=== PATIENT | female | born 1955 | race Caucasian/White ===

== ENCOUNTER → 2020-11-19 07:44 | Outpatient (CLI) | payer BC, SELFPAY ==
--- NOTE | 2020-11-19 07:48 | MM_ITS ---
PROCEDURE: MM DIG SCREENING MAMM BI W/CAD Digital Breast Tomosynthesis Included CLINICAL INDICATION: SCREENING There is a history of breast cancer patient's mother. COMPARISON: MG DIG MAMMO BILAT SCREENING from 01/23/2010, [facility] TECHNIQUE: Standard CC and MLO images and 3D Tomosynthesis was obtained. R2 CAD reviewed. FINDINGS: Prominent diffuse fibroglandular densities are seen throughout both breasts and findings are bilateral and symmetrical. No suspicious lesion in the breast suspicious microcalcifications. IMPRESSION: Diffuse breast density with no suspicious lesions seen BI-RAD Category: 1 Negative FOLLOW-UP: 1YR 1 Year Follow-up (A letter has been sent to the patient regarding results of the study.) Dictated by: Dr. Awais Brown MD 12/03/2020 07:33 Dr. Awais Brown MD in [place] 12/03/2020 07:33
--- NOTE | 2020-11-19 07:48 | XR_ITS ---
PROCEDURE: XR DEXA AXIAL SKELETON CLINICAL HISTORY: POST MENOPAUSAL COMPARISON: No exams were available for comparison FINDINGS: The total right hip BMD is 0.901 g per cm squared with a T-score of -0.3. The right femoral neck is 0.689 grams/centimeter squared and the T-score is -1.4. The total left hip BMD is 0.839 grams/centimeter squared with a T-score of -0.8. The left femoral neck is 0.749 grams/centimeter squared and the T-score is -0.9.. The lumbar spine BMD is 1.010 grams/centimeter squared with a T-score of -0.5.. IMPRESSION: Normal values for lumbar spine and left hip, mild osteopenia right hip Based on these results a follow-up exam is recommended in 2 year. Dictated by: Dr. Awais Brown MD 11/19/2020 13:43 Dr. Awais Brown MD in [place] 11/19/2020 13:43
== END ==
PROVIDERS: PCP Family Medicine; Visit Provider Family Medicine
DX: Z12.31 Encounter for screening mammogram for malignant neoplasm of breast (principal); Z13.820 Encounter for screening for osteoporosis; Z78.0 Asymptomatic menopausal state
CPT/HCPCS: 77063; 77067; 77080

== ENCOUNTER 2022-07-05 15:29 | Emergency (ER) | payer MEDICARE, SELFPAY ==
--- NOTE | 2022-07-05 15:40 | XR_ITS ---
PROCEDURE INFORMATION: Exam: XR Right Ankle Exam date and time: 07/05/2022 3:52 PM Age: 67 years old Clinical indication: Pain; Ankle; Right; Additional info: Fall TECHNIQUE: Imaging protocol: Radiologic exam of the Right ankle. Views: 3 or more views. COMPARISON: CR XR FOOT RT MIN 3V 07/05/2022 3:50 PM FINDINGS: Bones/joints: Acute nondisplaced lateral malleolar fracture. Nondisplaced fracture base of the 5th metatarsal. Soft tissues: Normal. IMPRESSION: 1. Acute nondisplaced lateral malleolar fracture. 2. Diffuse soft tissue swelling superficial to the lateral malleolus. 3. Nondisplaced fracture base of the 5th metatarsal.
--- NOTE | 2022-07-05 15:40 | XR_ITS ---
PROCEDURE INFORMATION: Exam: XR Right Foot Exam date and time: 07/05/2022 3:50 PM Age: 67 years old Clinical indication: Pain; Foot; Right; Additional info: Fall TECHNIQUE: Imaging protocol: Radiologic exam of the Right foot. Views: 3 or more views. COMPARISON: No relevant prior studies available. FINDINGS: Bones/joints: There is a comminuted fracture involving the base of the 5th metatarsal. Minimal enthesophyte plantar margin of the calcaneus at the site of attachment of the plantar aponeurosis. Soft tissues: Soft tissue swelling lateral aspect of the midfoot. IMPRESSION: 1. Findings compatible with a Wong fracture 5th metatarsal. 2. Soft tissue swelling lateral aspect of the midfoot.
[2022-07-05 15:51] VITALS: BP 149/77; PULSE 90; RESP 16; TEMP 37.1; O2SAT 97; BMI 28.1
--- NOTE | 2022-07-05 16:05 | EXP.UTC ---
Discharge Plan Disposition Patient Disposition: Home, Self-Care Condition: Good Prescriptions Prescriptions: New ibuprofen [IBU] 800 mg tablet 800 mg PO Q8HP PRN (Reason: Moderate Pain) Qty: 30 0RF Referrals Follow up/Referrals: Alfredo Acevedo MD [Primary Care Provider] - See instructions Cheryle Suarez DPM [Staff Physician] - See instructions Activity Restrictions/Add. Instructions Additional Instructions/Restrictions: Rest the extremity, apply ice for 15 minutes as tolerated three or four times per day, Elevate the extremity as tolerated while you are resting. Make sure you always have the boot on when standing until you are told different by orthopedist. Only do very minimal weight bearing with the boot on until you are told different by the orthopedist. Take ibuprofen for pain. I sent in a prescription to your pharmacy. Follow up with Dr. Suarez (podiatry here in the speciality clinic). I put in a referral but you need to call her office and schedule an appointment. Call in the morning to get a follow up appointment. If you go to a different orthopedic doctor or ultrasound spec make sure you take the x-ray disk with you. Follow up with your regular doctor. GO TO THE ER FOR ANY WORSENING SYMPTOMS Clinical Impressions Clinical Impression: Fracture of fifth metatarsal bone of right foot, Lateral malleolar fracture Instructions Patient Instructions: DI for Ankle Fracture, DI for Foot Fracture Discharge ED Provider: Geovanny Holbrook [facility] HPI General Stated complaint: AO 07/05 @1300 FELL ON R FOOT Mode of Arrival: Wheelchair Source of Information: Patient and Spouse Limitations: Physical Limitations Time Seen by Provider: 07/05/22 16:05 HEENT Symptoms (Recalled from RN notes): No Resp Symptoms (Recalled from RN notes): No Skin Symptoms (Recalled from RN notes): No MS Symptoms (Recalled from RN notes): Yes Functional Status (Recalled from RN notes): n/a History of Present Illness Provider Complaint: pt comes in today with c/o fall. pt had pain in right ankle. pt states she fell off a step into concrete Related Data Previous Rx's Medication Instructions Recorded ibuprofen 800 mg tablet (IBU) 800 mg PO Q8HP PRN Moderate Pain 07/05/22 #30 tabs Allergies Allergy/AdvReac Type Severity Reaction Status Date / Time No Known Allergies Allergy Verified 07/05/22 15:58 Worker's Comp Is this a Worker's Comp case?: No PFSH PFSH Social History Smoking Status: Never smoker alcohol intake: never current occupational status: employed and retired Travel in the last 8 weeks: None ROS Obtained: Yes All systems reviewed & no additional complaints except as documented Constitutional Constitutional: Denies chills and Denies fever(s) Integumentary/Breasts Skin/Breast: Denies redness, Denies rash and Denies wounds Neurologic Neurologic: Denies paresthesias Physical Exam General General appearance: alert and in no apparent distress Head Head exam: atraumatic, normocephalic and normal inspection Eye Eye exam: Present normal appearance, PERRL and EOMI ENT ENT exam: Present normal exam, normal oropharynx, mucous membranes moist, TM's normal bilaterally and normal external ear exam Neck Neck exam: Present normal inspection, full ROM and trachea midline; Absent meningismus or lymphadenopathy Chest Chest inspection: Present normal inspection and symmetric chest wall rise; Absent tenderness Respiratory Respiratory exam: Present normal lung sounds bilaterally; Absent respiratory distress Cardiovascular Cardiovascular exam: Present regular rate and normal rhythm; Absent JVD Expanded Cardiovascular Exam Peripheral pulses: 2+: posterior tibialis (R), posterior tibialis (L), dorsalis pedis (R) and dorsalis pedis (L) Abdominal Exam Abdominal exam: Present soft and normal bowel sounds; Absent distention, tenderness or guarding Extremities Exam Extremitie
[2022-07-05 16:58] VITALS: BP 149/77; PULSE 90; RESP 16; TEMP 37.1
== END 2022-07-05 17:02 | disposition home or self-care (01) ==
PROVIDERS: Emergency Provider Nurse Practitioner Family; PCP Family Medicine
DX: S92.351A Displaced fracture of fifth metatarsal bone, right foot, initial encounter for closed fracture (principal); S82.63XA Displaced fracture of lateral malleolus of unspecified fibula, initial encounter for closed fracture; W10.9XXA Fall (on) (from) unspecified stairs and steps, initial encounter
CPT/HCPCS: 73610; 73630; 99213; G0463

== ENCOUNTER → 2022-07-13 08:33 | Outpatient (CLI) | payer MEDICARE, SELFPAY ==
--- NOTE | 2022-07-13 08:37 | XR_ITS ---
FINAL REPORT CLINICAL HISTORY: fracture f/u, SPV COMPARISON: July 05, 2022 FINDINGS: RIGHT ANKLE: Three views of the right ankle were obtained. The previously seen lateral malleolar fracture is not well seen. There is a small plantar calcaneal spur. The joint spaces and mortise are intact. There is no soft tissue abnormality. IMPRESSION: Previously seen lateral malleolus fracture is not well seen. Reviewed, Interpreted and Dictated by Livan Velasquez III, MD Transcribed by Zen Grigsby Authenticated and [facility]
--- NOTE | 2022-07-13 08:37 | XR_ITS ---
FINAL REPORT CLINICAL HISTORY: fracture followup COMPARISON: July 05, 2022 FINDINGS: 3 views of the right foot were obtained. Again seen is a nondisplaced transverse fracture through the proximal 5th metatarsal. Bony alignment is stable. The joint spaces are intact. The soft tissues are unremarkable. IMPRESSION: Nondisplaced fracture of the proximal 5th metatarsal, stable. Reviewed, Interpreted and Dictated by Livan Velasquez III, MD Transcribed by Zen Grigsby Authenticated and . [facility]
== END ==
PROVIDERS: PCP Family Medicine; Visit Provider Podiatrist
DX: S82.64XA Nondisplaced fracture of lateral malleolus of right fibula, initial encounter for closed fracture (principal); S92.354A Nondisplaced fracture of fifth metatarsal bone, right foot, initial encounter for closed fracture; S99.191A Other physeal fracture of right metatarsal, initial encounter for closed fracture; S92.351A Displaced fracture of fifth metatarsal bone, right foot, initial encounter for closed fracture; S82.61XA Displaced fracture of lateral malleolus of right fibula, initial encounter for closed fracture
CPT/HCPCS: 73610; 73630

== ENCOUNTER → 2022-08-10 09:48 | Outpatient (CLI) | payer MEDICARE, SELFPAY ==
--- NOTE | 2022-08-10 09:56 | XR_ITS ---
FINAL REPORT CLINICAL HISTORY: ankle pain COMPARISON: 07/13/2022 FINDINGS: RIGHT ANKLE Three weight-bearing views of the right ankle were obtained. A faint curvilinear lucency of the lateral malleolus is compatible with a healing fracture. There is no displacement. The joint spaces and mortise are intact. There is no soft tissue abnormality. IMPRESSION: Near complete healing of a lateral malleolus fracture. Reviewed, Interpreted and Dictated by Don Olvera MD Transcribed by Dara Wong Authenticated and [facility]
--- NOTE | 2022-08-10 09:56 | XR_ITS ---
FINAL REPORT CLINICAL HISTORY: foot pain COMPARISON: 07/13/2022 FINDINGS: RIGHT FOOT Three weight-bearing views of the right foot were obtained. There is a transverse fracture of the 5th proximal metatarsal with mild interval bone healing. There is no evidence of complete bony union. No new abnormality is identified. The joint spaces are preserved. The soft tissues are unremarkable. IMPRESSION: Incomplete healing of 5th metatarsal fracture. Reviewed, Interpreted and Dictated by Don Olvera MD Transcribed by Dara Wong Authenticated and [facility]
== END ==
PROVIDERS: PCP Family Medicine; Visit Provider Podiatrist
DX: M25.571 Pain in right ankle and joints of right foot (principal); S99.911A Unspecified injury of right ankle, initial encounter; S92.351A Displaced fracture of fifth metatarsal bone, right foot, initial encounter for closed fracture; S99.191A Other physeal fracture of right metatarsal, initial encounter for closed fracture
CPT/HCPCS: 73610; 73630

== ENCOUNTER → 2022-08-31 09:39 | Outpatient (CLI) | payer MEDICARE, SELFPAY ==
--- NOTE | 2022-08-31 09:45 | XR_ITS ---
FINAL REPORT CLINICAL HISTORY: R 5th met fx COMPARISON: August 10, 2022 FINDINGS: 3 views of the right foot were obtained. There is a stable nondisplaced fracture of the proximal 5th metatarsal. There are mild degenerative changes. The soft tissues are unremarkable. IMPRESSION: Stable nondisplaced fracture of the proximal 5th metatarsal appears subacute. Reviewed, Interpreted and Dictated by Livan Velasquez III, MD Transcribed by Zen Grigsby Authenticated and [facility]
--- NOTE | 2022-08-31 09:45 | XR_ITS ---
FINAL REPORT CLINICAL HISTORY: Right distal tibia fx COMPARISON: August 10, 2022 FINDINGS: RIGHT ANKLE: Three views of the right ankle were obtained. There is no acute fracture or dislocation. There are [id number] degenerative changes. There are subchondral cysts in the talar dome and distal tibia. There is a small plantar calcaneal spur. There is soft tissue swelling. IMPRESSION: Swelling with [id number] degenerative change and subchondral cyst formation. Reviewed, Interpreted and Dictated by Livan Velasquez III, MD Transcribed by Zen Grigsby Authenticated and [facility]
== END ==
PROVIDERS: PCP Family Medicine; Visit Provider Podiatrist
DX: S82.891A Other fracture of right lower leg, initial encounter for closed fracture (principal); S99.191A Other physeal fracture of right metatarsal, initial encounter for closed fracture
CPT/HCPCS: 73610; 73630

== ENCOUNTER → 2022-09-24 08:46 | Outpatient (CLI) | payer MEDICARE, SELFPAY ==
--- NOTE | 2022-09-24 08:50 | XR_ITS ---
FINAL REPORT CLINICAL HISTORY: foot pain/ 5th met fracture COMPARISON: August 31, 2022 FINDINGS: RIGHT FOOT Three views of the right foot were obtained. There is a subacute fracture of the proximal 5th metatarsal, stable. No other fracture is identified. There are mild degenerative changes. The soft tissues are unremarkable. IMPRESSION: Stable subacute fracture of the proximal 5th metatarsal. Reviewed, Interpreted and Dictated by Livan Velasquez III, MD Transcribed by Dara Wong Authenticated and [facility]
--- NOTE | 2022-09-24 08:50 | XR_ITS ---
FINAL REPORT CLINICAL HISTORY: ankle pain COMPARISON: August 31, 2022 FINDINGS: RIGHT ANKLE Three views of the right ankle were obtained. There is no acute fracture or dislocation. There are mild degenerative changes. There are small subchondral cysts in the talar dome and distal tibia. There is no soft tissue abnormality. IMPRESSION: Mild degenerative changes with small subchondral cysts in the talar dome and distal tibia. Reviewed, Interpreted and Dictated by Livan Velasquez III, MD Transcribed by Dara Wong Authenticated and [facility]
== END ==
PROVIDERS: PCP Family Medicine; Visit Provider Podiatrist
DX: M25.571 Pain in right ankle and joints of right foot (principal); S99.911A Unspecified injury of right ankle, initial encounter; S99.191A Other physeal fracture of right metatarsal, initial encounter for closed fracture
CPT/HCPCS: 73610; 73630

== ENCOUNTER 2022-10-01 07:52 | Outpatient (RCR) | payer MEDICARE, SELFPAY ==
--- NOTE | 2022-10-01 11:48 | HMH.PTOPEV ---
PT Outpatient Evaluation Rehab PT Outpatient Evaluation Start: 10/01/22 11:33 Freq: Status: Active Protocol: Document 10/01/22 11:33 BAR (Rec: 10/01/22 11:48 BAR [id number]) E-signed By Jori Velasquez, PT Outpatient Therapy Subjective History Subjective History This is the initial PT eval for Rhianna Yousif 67 yowf who presents with c/o R ankle pain, stiffness, and swelling ~ 3 mos after fall at home with resulting R lat malleolus fx and 5th MT fx. She reports she has been in cam walker since injury and is now clear to transition to a regular shoe. She reports less swelling overall and pain only with walking or standing. Chief Complaint Pain,Stiff Symptom Type Ache Symptoms Relieved By Rest/Positioning Symptoms Aggravated By Walking Prior Functional Limitations None Current Functional Limitations Standing,Walking Symptom Description Activity Dependent Level of pain today (0-10) 0 Pain scale - at its worst (0-10) 3 Ankle/Foot Eval Gait Observation General Gait Pattern Observation Antalgic Gait Assistive Device Ambulation Assistive Device None Palpation Tenderness right Ankle/Foot Palpation Findings Tenderness Ankle/Foot Palpation Overall Comment peroneal tendon and 5th MT head ROM Ankle/Foot Dorsiflexion w/Knee Extended 0-5 Active Range Motion (degrees) Ankle/Foot Plantar Flexion Active Range 0-28 of Motion (degrees) Ankle/Foot Eversion Active Range of 0-7 Motion (degrees) Ankle/Foot Inversion Active Range of 0-30 Motion (degrees) MMT Ankle Dorsiflexion Strength Grade 4 Good Ankle Plantarflexion Strength Grade 4 Good Foot Eversion Strength Grade 4 Good Foot Inversion Strength Grade 4 Good Special Tests Ankle Anterior Drawer Test Negative Left,Negative Right Talar Tilt Test Negative Left,Negative Right Outpatient Therapy Assessment Impairments Problems/Impairmments Palpation Tenderness,Impaired Range of Motion,Impaired Strength,Impaired Gait Pattern ,Impaired Walking,Impaired Standing,Increased Edema, Lymphedema Present,Subjective C/O Pain,Impaired Self Care/ Self Management Prognosis Rehab Potential
== END 2022-10-01 07:55 | disposition home or self-care (01) ==
LOC: PT 07:52
PROVIDERS: PCP Family Medicine; Visit Provider Podiatrist
DX: M25.571 Pain in right ankle and joints of right foot (principal); S99.191A Other physeal fracture of right metatarsal, initial encounter for closed fracture; S92.351A Displaced fracture of fifth metatarsal bone, right foot, initial encounter for closed fracture; S99.911A Unspecified injury of right ankle, initial encounter
CPT/HCPCS: 97163

== ENCOUNTER → 2022-10-06 14:03 | Outpatient (CLI) | payer MEDICARE, SELFPAY ==
--- NOTE | 2022-10-06 14:03 | CT_ITS ---
FINAL REPORT CLINICAL HISTORY: evaluate 5th met fx distal fib fx healing COMPARISON: August 2022 FINDINGS: CT RIGHT ANKLE WITHOUT CONTRAST Technique: Axial images through the right ankle were performed by computed tomography. Sagittal and coronal reconstruction images were performed. This study was performed with techniques to keep radiation doses as low as reasonably achievable (ALARA). Individualized dose reduction techniques using automated exposure control or adjustment of mA and/or kV according to the patient's size were employed. Healed fracture of the proximal 5th metatarsal. Severe osteopenia likely due to disuse. No evidence of fibular fracture. Mild degenerative change of the hindfoot and ankle. IMPRESSION: Healed fracture with severe osteopenia. Reviewed, Interpreted and Dictated by Don Olvera MD Transcribed by Zen Grigsby Authenticated and [facility]
== END ==
PROVIDERS: PCP Family Medicine; Visit Provider Podiatrist
DX: M25.571 Pain in right ankle and joints of right foot (principal); S92.354G Nondisplaced fracture of fifth metatarsal bone, right foot, subsequent encounter for fracture with delayed healing; S99.191K Other physeal fracture of right metatarsal, subsequent encounter for fracture with nonunion
CPT/HCPCS: 73700

== ENCOUNTER → 2023-07-26 08:12 | Outpatient (CLI) | payer MEDICARE, SELFPAY ==
--- NOTE | 2023-07-26 08:19 | XR_ITS ---
FINAL REPORT CLINICAL HISTORY: OSTEOPOROSIS COMPARISON: 11/19/2020 FINDINGS: Using L1-4, the bone mineral density of the spine is 1.044 g/cm2, corresponding to T-score of 0.0, within normal limits. Previously was 1.000 g/cm? with T score of -0.4. Using the left hip, the bone mineral density of the femoral neck is 0.700 g/cm2, corresponding to a T-score of -1.3, consistent with osteopenia. Previously 0.749 g/cm? with T score of -0.9. Using the right hip, the bone mineral density of the femoral neck is 0.706 g/cm2, corresponding to a T-score of -1.3, consistent with osteopenia. Previously 0.689 g/cm? with T score of -1.4. FRAX 10 year fracture risk is 0.8% for a hip fracture and 8.6% for a major osteoporotic fracture. NOTE: T-score: Standard deviation compared with peak bone mass of young adult mean. *Following the recommendations of the International Society of Bone densitometry, classification of hip BMD is based on the lower of two T-scores; total hip or femoral neck. IMPRESSION: Diminished bone mineral density consistent with osteopenia. Reviewed, Interpreted and Dictated by Ramón Duval MD Transcribed by Nita Roman Authenticated and [facility]
--- NOTE | 2023-07-26 08:19 | MM_ITS ---
PROCEDURE INFORMATION: Exam: MG Bilateral Screening 3D Mammography Exam date and time: 07/26/2023 8:12 AM Age: 68 years old Clinical indication: Screening examination. Her mother had breast cancer. TECHNIQUE: Imaging protocol: Bilateral Screening tomosynthesis and 2D mammography including computer-aided detection (CAD) when performed. COMPARISON: 1. MG MM DIG SCREENING MAMM BI W/CAD 11/19/2020 8:04 AM 2. MG DIG MAMMO BILAT SCREENING 01/23/2010 9:16 AM FINDINGS: MAMMOGRAPHY: Breast composition: There are scattered areas of fibroglandular density. Mass: Oval 0.8 cm mass in the right upper inner quadrant posterior 3rd, CC frame 39 and MLO frame 52. Architectural distortion: None. Calcifications: No suspicious calcifications. Asymmetric density: None. Skin thickening: None. Axillary adenopathy: None. IMPRESSION: Patient will be recalled for right sonography for further evaluation of right breast mass. ASSESSMENT: BI-RADS Category 0: Incomplete- Need Additional Imaging Evaluation and/or Prior Mammograms for Comparison
== END ==
PROVIDERS: PCP Family Medicine; Visit Provider Family Medicine
DX: Z13.820 Encounter for screening for osteoporosis; Z12.31 Encounter for screening mammogram for malignant neoplasm of breast; Z78.0 Asymptomatic menopausal state
CPT/HCPCS: 77063; 77067; 77080

== ENCOUNTER → 2023-08-06 14:37 | Outpatient (CLI) | payer MEDICARE, SELFPAY ==
--- NOTE | 2023-08-06 14:40 | US_ITS ---
PROCEDURE INFORMATION: Exam: US Right Breast, Complete Exam date and time: 08/06/2023 2:44 PM Age: 68 years old Clinical indication: Patient recalled for further evaluation of a right upper inner quadrant breast mass TECHNIQUE: Imaging protocol: Complete ultrasound of all four quadrants of the right breast and the retroareolar regions, including ultrasound of the axilla when performed. COMPARISON: MG MM DIG SCREENING MAMM BI W/CAD 07/26/2023 8:12 AM FINDINGS: Breast: Sonographic images of the right the breast including the retroareolar region, all 4 quadrants and the axilla do not demonstrate any solid masses. Fairly well-circumscribed predominantly anechoic mass in the 1 o'clock axis 3 cm from the nipple likely represents a minimally debris-filled cyst. It appears to most closely correspond to the mass on mammography and measures 0.8 x 0.6 cm in dimension. No architectural distortion or acoustical shadowing. No skin thickening or axillary adenopathy. IMPRESSION: Mass on screening mammography most likely correlates with a minimally debris-filled cyst on sonography. A precautionary six-month follow-up diagnostic right mammogram and targeted right breast ultrasound are recommended to ensure stability over time ASSESSMENT: BI-RADS Category 3: Probably benign
== END ==
LOC: RAD 14:38
PROVIDERS: PCP Family Medicine; Visit Provider Family Medicine
DX: R92.8 Other abnormal and inconclusive findings on diagnostic imaging of breast (principal)
CPT/HCPCS: 76641

== ENCOUNTER 2024-01-26 13:45 | Outpatient (CLI) | payer MEDICARE, SELFPAY ==
--- NOTE | 2024-01-26 13:55 | US_ITS ---
PROCEDURE INFORMATION: Exam: US Right Breast, Complete MG Right Diagnostic Breast Tomosynthesis Exam date and time: 01/26/2024 1:59 PM Age: 68 years old Clinical indication: Short-term radiographic followup; right breast mass TECHNIQUE: Imaging protocol: Complete ultrasound of all four quadrants of the right breast and the retroareolar regions, including ultrasound of the axilla when performed. Right Diagnostic tomosynthesis and 2D mammography including computer-aided detection (CAD) when performed. Unilateral or bilateral exam. COMPARISON: US BREAST RT COMPLETE 08/06/2023 2:44 PM FINDINGS: MAMMOGRAPHY: Breast composition: There are scattered areas of fibroglandular density. Breast mammogram findings: There is no stellate mass, architectural distortion or suspicious to suggest malignancy. No new or suspicious masses are seen. Previously noted posterior upper inner quadrant mass is not well seen on the current examination. No skin thickening or axillary adenopathy. ULTRASOUND: Breast ultrasound findings: Sonographic images of the right breast including the retroareolar region, all 4 quadrants and the axilla do not demonstrate any solid masses. Versus replaced over normal fibroglandular structures in the 12 o'clock axis 3 cm from the nipple. 0.4 cm cyst in the o'clock axis 2 cm from the nipple. Previously noted 0.8 cm probable debris-filled cyst is not definitively identified on current examination. No architectural distortion or acoustical shadowing. No skin thickening or axillary adenopathy. IMPRESSION: No mammographic or sonographic evidence of malignancy. Annual bilateral mammographic screening is recommended in 6 months unless otherwise clinically indicated. ASSESSMENT: BI-RADS Category 2: Benign.
== END 2024-01-26 23:59 | disposition home or self-care (01) ==
LOC: RAD 13:46
PROVIDERS: PCP Family Medicine; Visit Provider Family Medicine
DX: R92.8 Other abnormal and inconclusive findings on diagnostic imaging of breast (principal)
CPT/HCPCS: 76641; 77061; 77065; G0279

== ENCOUNTER 2024-08-15 07:42 | Outpatient (CLI) | payer MEDICARE, SELFPAY ==
--- NOTE | 2024-08-15 07:43 | MM_ITS ---
PROCEDURE INFORMATION: Exam: MG Bilateral Screening 3D Mammography Exam date and time: 08/15/2024 7:46 AM Age: 69 years old Clinical indication: Screening mammogram TECHNIQUE: Imaging protocol: Bilateral Screening tomosynthesis and 2D mammography including computer-aided detection (CAD) when performed. COMPARISON: 1. MG MM DIG MAMM DX UNILAT RT CAD 01/26/2024 2:06 PM 2. MG MM DIG SCREENING MAMM BI W/CAD 07/26/2023 8:12 AM 3. MG MM DIG SCREENING MAMM BI W/CAD 11/19/2020 8:04 AM 4. US BREAST RT COMPLETE 01/26/2024 1:59 PM FINDINGS: MAMMOGRAPHY: Breast composition: There are scattered areas of fibroglandular density. Mass: None. Architectural distortion: No new or suspicious architectural distortion. Calcifications: No new or suspicious calcifications are present Asymmetric density: No new or suspicious asymmetric density is present Skin thickening: None. Axillary adenopathy: None. IMPRESSION: No mammographic evidence of malignancy. Recommend annual screening mammography unless otherwise clinically indicated. ASSESSMENT: BI-RADS category 1: Negative.
== END 2024-08-15 23:59 | disposition home or self-care (01) ==
LOC: RAD 07:42
PROVIDERS: PCP Family Medicine; Visit Provider Family Medicine
DX: Z12.31 Encounter for screening mammogram for malignant neoplasm of breast (principal)
CPT/HCPCS: 77063; 77067

== ENCOUNTER 2025-08-16 09:21 | Outpatient (CLI) | payer MEDICARE, SELFPAY ==
--- NOTE | 2025-08-16 09:24 | MM_ITS ---
PROCEDURE INFORMATION: Exam: MG Bilateral Screening 3D Mammography Exam date and time: 08/16/2025 9:31 AM Age: 70 years old Clinical indication: Screening examination TECHNIQUE: Imaging protocol: Bilateral Screening tomosynthesis and 2D mammography including computer-aided detection (CAD) when performed. COMPARISON: MG MM DIG SCREENING MAMM BI W/CAD 08/15/2024 7:46 AM FINDINGS: MAMMOGRAPHY: Breast composition: There are scattered areas of fibroglandular density. Mass: None. Architectural distortion: None. Calcifications: No suspicious calcifications. Asymmetric density: None. Skin thickening: None. Axillary adenopathy: None. IMPRESSION: No mammographic evidence of malignancy. Annual screening is recommended unless otherwise clinically indicated. ASSESSMENT: BI-RADS Category 1: Negative.
--- NOTE | 2025-08-16 09:24 | XR_ITS ---
FINAL REPORT CLINICAL HISTORY: SCREENING COMPARISON: 07/26/2023 FINDINGS: Using L1-4, the bone mineral density of the spine is 1.050 g/cm2, corresponding to T-score of 0.0 and a Z-score of 2.0. This is a normal DEXA result. The bone mineral density change versus baseline is 0.6%. Using the left hip, the bone mineral density of the femoral neck is 0.801 g/cm2, corresponding to a T-score of -0.4 and a Z-score of 1.3. This is a normal DEXA result. The bone mineral density change versus baseline is 14.4%. Using the right hip, the bone mineral density of the femoral neck is 0.732 g/cm2, corresponding to a T-score of -1.1 and a Z-score of 0.6. This corresponds to osteopenia. The bone mineral density change versus baseline is 3.7%. NOTE: T-score: Standard deviation compared with peak bone mass of young adult mean. *Following the recommendations of the International Society of Bone densitometry, classification of hip BMD is based on the lower of two T-scores; total hip or femoral neck. IMPRESSION: Normal bone mineral density of the left hip and lumbar spine. Diminished bone mineral density of the right hip is compatible with osteopenia. Reviewed, Interpreted and Dictated by Becky Escobar MD Transcribed by Senait Pickett Authenticated and . [facility]
== END 2025-08-16 23:59 | disposition home or self-care (01) ==
LOC: RAD 09:21
PROVIDERS: PCP Family Medicine; Visit Provider Family Medicine
DX: Z12.31 Encounter for screening mammogram for malignant neoplasm of breast (principal); R92.323 Mammographic fibroglandular density, bilateral breasts; R93.7 Abnormal findings on diagnostic imaging of other parts of musculoskeletal system; Z13.820 Encounter for screening for osteoporosis; Z78.0 Asymptomatic menopausal state
CPT/HCPCS: 77063; 77067; 77080